=== PATIENT | male | born 2000 | race Caucasian/White ===

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

== ENCOUNTER 2022-07-03 07:17 | Emergency (ER) | payer OTHER ==
[~2022-07-03] VITALS: Ht 170.2 cm; Wt 68.0 kg
[2022-07-03] MEDS ORDERED: ONDA4ODT MM (07:38)
[2022-07-03] MEDS ORDERED: LOPE2C PO (07:38)
== END 2022-07-03 07:46 | disposition home or self-care (01) ==
LOC: ER 07:17
DX: R11.2 Nausea with vomiting, unspecified (principal); R51.9 Headache, unspecified; R19.7 Diarrhea, unspecified
CPT/HCPCS: A9270

== ENCOUNTER 2022-09-05 13:17 | Emergency (ER) | payer OTHER ==
[~2022-09-05] VITALS: Ht 170.2 cm; Wt 68.0 kg
[~2022-09-05 13:17] MED LIST changes: +LOPE2C PO; +ONDA4ODT MM
== END 2022-09-05 16:17 | disposition home or self-care (01) ==
LOC: ER 13:17
DX: M25.561 Pain in right knee (principal); X50.1XXA Overexertion from prolonged static or awkward postures, initial encounter; Y93.66 Activity, soccer; F17.290 Nicotine dependence, other tobacco product, uncomplicated
CPT/HCPCS: 99283

== ENCOUNTER 2022-12-19 18:34 | Emergency (ER) | payer OTHER ==
[~2022-12-19] VITALS: Ht 170.2 cm; Wt 69.4 kg
[2022-12-19 18:50] VITALS: BP 133/83
== END 2022-12-19 20:26 | disposition home or self-care (01) ==
LOC: ER 18:34
DX: S01.21XA Laceration without foreign body of nose, initial encounter (principal); F17.290 Nicotine dependence, other tobacco product, uncomplicated; V28.49XA Other motorcycle driver injured in noncollision transport accident in traffic accident, initial encounter
CPT/HCPCS: 70450; 70486; 99283-25